=== PATIENT | male | born 1930 | race Caucasian/White ===

== ENCOUNTER 2016-07-06 12:01 | Emergency (ER) | payer MEDICARE ==
[2016-07-06 12:01] VITALS: BMI 22.7
[2016-07-06 12:18] VITALS: TEMP 97.5
--- NOTE | 2016-07-06 12:51 | EDPRACDOC ---
- Treatment Prior to ED Arrival Reported Medications/Treatment [facility] Treatment BLS - General Information Chief Complaint: Generalized Weakness Stated Complaint: STROKE Time Seen by Provider: 07/06/16 12:21 Information Source: Family Mode of Arrival:: Ambulance Home Medications: Home Medications Pravastatin [Pravachol] 40 mg PO 199908/04/13 Risperidone [Risperdal] 0.5 mg PO 199911/09/14 Rivastigmine Tartrate [Rivastigmine] 3 mg PO BID 11/09/14 Citalopram (anti-depressant) [Celexa] 20 [place] 79906/25/15 Finasteride [Proscar] 5 [place] PO 79906/25/15 Carbidopa/Levodopa [Carbidopa-Levodopa 25-100 Tab] 1 tab PO BID 05/22/16 Cyanocobalamin (Vitamin B-12) [Vitamin B-12 (cyanocobalamin)] 1,000 [place] 7[address]05/22/16 Oxybutynin [Ditropan] 5 mg PO 79905/22/16 Tamsulosin HCl [Flomax] 0.4 mg PO 0805/22/16 Acetaminophen Ex Str Tablet [TYLENOL EXTRA STRENGTH Tablet] 1,000 mg PO Q4H PRN 07/06/16 Aspirin [Aspirin EC] 81 [place] [address]07/06/16 Benazepril HCl [Lotensin] 20 mg PO 0800 07/06/16 Comp.stocking,Knee,Long,Medium [T.e.d. Anti-Embolism Stocking] 1 each QA Divalproex Sodium [Depakote Sprinkle] 250 mg PO TID 07/06/16 Furosemide [Lasix] 20 mg PO 0800 07/06/16 Guaifenesin [Robitussin] 10 ml PO Q6H PRN 07/06/16 Hydrocortisone/Aloe Vera [Hydrocortisone-Aloe 0.5% Cream] 28.4 gm TOP Q6H PRN Loperamide HCl [Imodium A-D] 2 mg PO DIR PRN 07/06/16 Magnesium Hydroxide [Milk of Magnesia] 30 ml PO DAILY PRN 07/06/16 Magnesium Hydroxide/Al Hydrox [Mylanta Liquid] 30 ml PO QID PRN 07/06/16 Neomy Sulf/Bacitrac Zn/Poly [Neosporin Antibiotic Ointment] 14.2 gm TOP Q12H Polyethylene Glycol 3350 [Miralax] 17 gm PO Q48H 07/06/16 Zaleplon [Sonata] 10 mg PO 199907/06/16 Allergies/Adverse Reactions: Allergies Allergy/AdvReac Type Severity Reaction Status Date / Time felodipine Allergy Unknown Verified 07/06/16 12:32 - History of Present Illness Exact Onset of Symptoms: Unknown Symptoms Started: Reports: At Rest HPI: PT PRESENTS WITH INCREASED LEANING TO THE LEFT. HE HAS BEEN LIKE THIS FOR SOME TIME ACCORDING TO HIS AT BEDSIDE. SHE REPORTS THAT HE WALKED WITH THERAPIST TODAY BUT WAS WEAKER THAN USUAL. ED Past Medical History - History Reviewed Yes Nurses notes reviewed and agree except as marked - Patient Medical History Neurological History: Reports: Cerebrovascular Accident (2013), Dementia Cardiac History: Reports: Hypertension, Hypercholesterolemia GI/ History: Reports: Renal Disease (RENAL INSUFFICIENY) Psychological History: Denies: Depression, Substance Use Disorder - Family Medical History Reports: Hypertension (Mom) - Social Medical History Smoking Status: Former smoker Social History: Denies: Substance Use Disorder Lives In: Senior Living Facility EDM Review of Systems - Review of Systems ROS Unobtainable: Yes Hx Limited due to age/level of understanding of patient - Physical Exam Constitutional: Alert, Confused Oriented to: Time, Person, Place Last recorded Vital Signs: Last Vital Signs Temp 97.5 F 07/06/16 12:11 Pulse 62 07/06/16 12:11 Resp 18 07/06/16 12:11 BP 189/95 H 07/06/16 12:11 Pulse Ox 93 07/06/16 12:11 Oxygen Pulse Oxygen Saturation 93 O2 Device Room Air Oxygen Flow Rate Fraction of Inspired Oxygen ( FIO2) - HEENT Head: negative: Deformity, Laceration Eye Exam: negative: Conjunctival Injection, Pale Conjunctiva Oropharynx: negative: Membranes Dry Nose: negative: Congestion, Discharge Neck: negative: Limited ROM - Respiratory/Cardiovascular Respiratory: Normal - CTA. negative: Accessory Muscle Use, Diminished, Tachypnea Cardiovascular: negative: Bradycardia, Tachycardia, Irregular - GI Auscultation: Normal Palpation: Normal Tenderness: Non tender - Musculoskeletal Extremities: Radial Pulse (PALPABLE) - Integumentary Skin: Warm, Dry. negative: Rash - Neurologic Memory Impaired: Short-term, Long-term Motor Function: Abnormal (PT IS GLOBALLY WEAK BILATERALLY. ARMS 3/5. LEGS ARE 3/5 BILATERAL.) Mood Description: Flat - Action Was an Antithrombotic given in the ED?: No Is patient a candidate for lytic therapy?: No Patient received TPA within 30 min of arrival?: No - Results 07/06/16 12:53 07/06/16 12:53 - EKG EKG #1 EKG Time: 12:08 -: Yes EKG interpreted by me Rate: bpm: 70 Rhythm: NSR, PVCs ST: Nonsp Decision Time to Discharge: 15:40 - Departure Yes I personally saw and evaluated the patient. Disposition: Home Condition: Stable Final Diagnosis: Muscle weakness Instructions: Weakness (General) Education/Counseling Given To: Family Member Education/Counseling Given Regarding: Diagnosis, Treatment Referrals: Bautista Salinas MD [Primary Care Provider] - One Week Prescriptions: Continue Pravastatin [Pravachol] 40 mg PO 2000 Risperidone [Risperdal] 0.5 mg PO 2000 Rivastigmine Tartrate [Rivastigmine] 3 mg PO BID Finasteride [Proscar] 5 mg PO 0800 Citalopram (anti-depressant) [Celexa] 20 mg PO 0800 Cyanocobalamin (Vitamin B-12) [Vitamin B-12 (cyanocobalamin)] 1,000 mcg SL 0800 Tamsulosin HCl [Flomax] 0.4 mg PO 0800 Oxybutynin [Ditropan] 5 mg PO 0800 Carbidopa/Levodopa [Carbidopa-Levodopa 25-100 Tab] 1 tab PO BID Magnesium Hydroxide [Milk of Magnesia] 30 ml PO DAILY PRN PRN Reason: Constipation Guaifenesin [Robitussin] 10 ml PO Q6H PRN PRN Reason: Cough Acetaminophen Ex Str Tablet [TYLENOL EXTRA STRENGTH Tablet] 1,000 mg PO Q4H PRN PRN Reason: RAMIREZ/MINOR PAIN Loperamide HCl [Imodium A-D] 2 mg PO DIR PRN PRN Reason: LOOSE STOOL Hydrocortisone/Aloe Vera [Hydrocortisone-Aloe 0.5% Cream] 28.4 gm TOP Q6H PRN PRN Reason: ITCH/RASH Zaleplon [Sonata] 10 mg PO 2000 Magnesium Hydroxide/Al Hydrox [Mylanta Liquid] 30 ml PO QID PRN PRN Reason: INDIGESTION Polyethylene Glycol 3350 [Miralax] 17 gm PO Q48H Furosemide [Lasix] 20 mg PO 0800 Divalproex Sodium [Depakote Sprinkle] 250 mg PO TID Comp.stocking,Knee,Long,Medium [T.e.d. Anti-Embolism Stocking] 1 each QAM Benazepril HCl [Lotensin] 20 mg PO 0800 Aspirin [Aspirin EC] 81 mg PO 0800 Neomy Sulf/Bacitrac Zn/Poly [Neosporin Antibiotic Ointment] 14.2 gm TOP Q12H
--- NOTE | 2016-07-06 12:57 | DIRPT ---
CLINICAL DATA: Drowsiness, history of CVA, leaning to the left for 1 month EXAM: CT HEAD WITHOUT CONTRAST TECHNIQUE: Contiguous axial images were obtained from the base of the skull through the vertex without intravenous contrast. COMPARISON: 11/22/2015 FINDINGS: No skull fracture is noted. Atherosclerotic calcifications of carotid siphon again noted. Calcified mass along the greater wing of right sphenoid is stable from prior exam consistent with calcified meningioma. Measures about 1.7 by 2 cm. Stable cerebral atrophy. Stable periventricular and patchy subcortical chronic white matter disease. No definite acute cortical infarction. No intraventricular hemorrhage. IMPRESSION: No acute intracranial abnormality. Stable atrophy and chronic white matter disease. No definite acute cortical infarction. Again noted calcified meningioma along the wing of right sphenoid bone. Electronically Signed By: Wild Mcmanus M.D. On: 07/06/2016 12:54
[2016-07-06 13:05] LABS: AUTOMATED EOSINOPHIL 1.8 % (0-5); AUTOMATED LYMPH 30.8 % (17-44); AUTOMATED MONOCYTE 13.9 % (3-10); AUTOMATED NEUTROPHIL 52.5 % (45-76); MPV 8.5 fL (7.4-10.4)
[2016-07-06 13:22] LABS: BLOOD UREA NITROGEN 15 MG/DL (9-20); CALC CORRECTED 10.2 MG/DL (8.4-10.2); CALCIUM 9.3 MG/DL (8.4-10.2); CALCULATED OSMOLALITY 271 MOs/Kg (270-290); CHLORIDE 106 mEq/L (98-107); GLUCOSE 86 MG/DL (70-99); SODIUM LEVEL 141 mEq/L (137-146); TOTAL PROTEIN 6.3 G/DL (6.3-8.2)
[2016-07-06 13:25] LABS: PARTIAL THROMB. TIME 23.1 SEC (22-35); PT-INR 1.1
--- NOTE | 2016-07-06 13:29 | DIRPT ---
CLINICAL DATA: Weakness, increased leaning to LEFT, increasing weakness EXAM: PORTABLE CHEST 1 VIEW COMPARISON: Portable exam 1254 hours compared to 05/24/2016 FINDINGS: Normal heart size, mediastinal contours and pulmonary vascularity. Slight rotation to the RIGHT. Atherosclerotic calcification aorta. LEFT basilar atelectasis. Remaining lungs grossly clear. Suspected small subpulmonic LEFT pleural effusion. No pneumothorax. Bones demineralized. IMPRESSION: Subsegmental atelectasis and probable small effusion at LEFT base. Electronically Signed By: Jorge Luis Johnson M.D. On: 07/06/2016 13:26
[2016-07-06 16:09] VITALS: BP 140/80; PULSE 63
== END 2016-07-06 16:09 | disposition home or self-care (01) ==
LOC: ED 12:01
DX: M62.81 Muscle weakness (generalized) (principal); F03.90 Unspecified dementia, unspecified severity, without behavioral disturbance, psychotic disturbance, mood disturbance, and anxiety
CPT/HCPCS: 36415; 70450; 71010; 80053; 84484; 85025; 85610; 85730; 93005; 99283

== ENCOUNTER 2016-07-07 18:48 | Emergency (ER) | payer MEDICARE ==
--- NOTE | 2016-07-07 19:03 | EDPRACDOC ---
- General Information Chief Complaint: Generalized Weakness Stated Complaint: CVA Time Seen by Provider: 07/07/16 18:55 Home Medications: Home Medications Pravastatin [Pravachol] 40 mg PO 199908/04/13 Risperidone [Risperdal] 0.5 mg PO 199911/09/14 Rivastigmine Tartrate [Rivastigmine] 3 mg PO BID 11/09/14 Citalopram (anti-depressant) [Celexa] 20 mg PO 79906/25/15 Finasteride [Proscar] 5 mg PO 79906/25/15 Carbidopa/Levodopa [Carbidopa-Levodopa 25-100 Tab] 1 tab PO BID 05/22/16 Cyanocobalamin (Vitamin B-12) [Vitamin B-12 (cyanocobalamin)] 1,000 [place] SL 79905/22/16 Oxybutynin [Ditropan] 5 mg PO 0805/22/16 Tamsulosin HCl [Flomax] 0.4 mg PO 0805/22/16 Acetaminophen Ex Str Tablet [TYLENOL EXTRA STRENGTH Tablet] 1,000 mg PO Q4H PRN 07/06/16 Aspirin [Aspirin EC] 81 mg PO 0807/06/16 Benazepril HCl [Lotensin] 20 mg PO 0800 07/06/16 Divalproex Sodium [Depakote Sprinkle] 250 mg PO TID 07/06/16 Furosemide [Lasix] 20 mg PO 0800 07/06/16 Guaifenesin [Robitussin] 10 ml PO Q6H PRN 07/06/16 Hydrocortisone/Aloe Vera [Hydrocortisone-Aloe 0.5% Cream] 28.4 gm TOP Q6H PRN Loperamide HCl [Imodium A-D] 2 mg PO DIR PRN 07/06/16 Magnesium Hydroxide [Milk of Magnesia] 30 ml PO DAILY PRN 07/06/16 Magnesium Hydroxide/Al Hydrox [Mylanta Liquid] 30 ml PO QID PRN 07/06/16 Neomy Sulf/Bacitrac Zn/Poly [Neosporin Antibiotic Ointment] 14.2 gm TOP Q12H PRN 07/06/16 Polyethylene Glycol 3350 [Miralax] 17 gm PO Q48H 07/06/16 Zaleplon [Sonata] 10 mg PO 199907/06/16 Aspirin 325 mg PO .ONCE PRN 07/07/16 Allergies/Adverse Reactions: Allergies Allergy/AdvReac Type Severity Reaction Status Date / Time felodipine Allergy Unknown Verified 07/06/16 12:32 - History of Present Illness Onset: DAYS Exact Onset of Symptoms: Unknown HPI: [facility] STATES THAT PT HAS BEEN "LEANING TO THE RIGHT" TODAY WITH INCREASED WEAKNESS, PT SEEN YESTERDAY FOR SIMILAR SYMPTOMS. PT HAS NO COMPLAINTS, STATES HE FEELS FINE, DENIES ANY PAIN, NO SOBR, NO N/V/D. Symptoms Started: Reports: Suddenly Symptoms Description: Worsening Weakness: Right: Arm, Leg Symptoms: Reports: Weak. Denies: Change of vision, Difficult speech, Faintness , Imbalance, Numbness, Near Syncope, On Med questionable toxic, Syncope, Tinnitus, Vertigo Symptom Severity: Reports: Unable to performs ADL's Relevant History of: Denies: Anemia, CVA, DM, Electrolyte disorder, GI Bleed, MD , TIA Associated signs and symptoms:: Denies: GI Bleed, Chest pain, Diarrhea, Fever, Headache, Nausea, Palpitations, Vomiting ED Past Medical History - History Reviewed Yes Nurses notes reviewed and agree except as marked - Patient Medical History Neurological History: Reports: Cerebrovascular Accident (2014), Dementia Cardiac History: Reports: Hypertension, Hypercholesterolemia GI/ History: Reports: Renal Disease (RENAL INSUFFICIENY) Psychological History: Denies: Depression, Substance Use Disorder - Family Medical History Reports: Hypertension (Mom) - Social Medical History Smoking Status: Former smoker Social History: Denies: Substance Use Disorder ETOH: None Substance Abuse: None Lives In: Assisted Living EDM Review of Systems - Review of Systems Constitutional: negative: Chills, Fever Eyes: negative: Blurred Vision, Double Vision Ears: negative: Drainage Throat: negative: Pain Nose: negative: Congestion, Discharge Respiratory: negative: Cough, Shortness of Breath, Wheezing Cardiovascular: negative: Chest Pain, Palpitations Gastrointestinal: negative: Diarrhea, Nausea, Pain, Vomiting Genitourinary: negative: Dysuria, Frequency Neurological: Weakness. negative: Dizziness, Headache, Numbness Musculoskeletal: No Symptoms Reported Integumentary: No Symptoms Reported - Physical Exam Constitutional: Alert (Awake), No apparent distress Oriented to: Time, Person, Place Last recorded Vital Signs: Oxygen Pulse Oxygen Saturation O2 Device Oxygen Flow Rate Fraction of Inspired Oxygen ( FIO2) - HEENT Head: Normal ( normocephalic) Eye Exam: Normal (PERRL, EOMI, Sclera white) Oropharynx: Normal (Pharynx:Moist without exudate,Gums-no swelling) Tympanic Membrane: Normal ENT EAC: Normal TMJ: Normal Nose: No Symptoms Reported (septum midline) Neck: Normal (FROM, trachea at midline) - Respiratory/Cardiovascular Respiratory: Normal - CTA (BBS clear to auscultation without adventitious sounds ) Cardiovascular: Normal (RRR without murmur, gallop or rub) - GI Auscultation: Normal (NABS) Palpation: Normal (Soft,No rebound or guarding, non distended) Tenderness: Non tender Mijares's Sign: Negative - Musculoskeletal Back: Normal (Non-Tender) Extremities: Normal (Normal tone, Pulses 2+ No cyanosis or edema, FROM) - Integumentary Skin: Normal, Warm, Dry Lymphatics: Normal (no adenopathy) - Neurologic Memory Impaired: Normal Motor Function: Normal (Normal tone, Pulses 2+ No cyanosis or edema, FROM) Cranial Nerve: Normal (CN II-X11 intact sensation, strength 5/5) Cerebellar: Normal Mood Description: Normal Perception: Normal NIH Stroke Scale Initial Evaluation Level of Consciousness: Alert LOC- Question: Answers Both Correctly LOC Commands: Both Task Correctly Best Gaze: Normal Visual: No Visual Loss Facial Palsy: Normal Movement Motor Arm LEFT: Drift Motor Arm RIGHT: Drift Motor Leg LEFT: Some Effort Against [place] (PT DOES NOT FOLLOW COMMAND TO PUSH/ PULL WITH FEET BUT CAN MOVE LOWER EXT) Motor Leg RIGHT: Unable to Assess (PT DOES NOT FOLLOW COMMAND TO PUSH/PULL WITH FEET BUT CAN MOVE LOWER EXT) Limb Ataxia: Absent Sensory: Normal Best Language: No Aphasia Dysarthria: Normal Extinction and Inattention: No Abnormality (Neglect) Score: 4out of42 - Differential Diagnosis CVA, Dehydration, Dysrhythmia, Electrolyte disorder, TIA - Re-evaluation Re-evaluation 1 Re-evaluation Time: 19:15 ( AT BEDSIDE, STATES HAS HAD WEAKNESS AND "NOT WALKING MUCH" FOR WEEKS, STATES "LEANING TO THE LEFT" FOR SEVERAL DAYS) Re-evaluation 2 Re-evaluation Time: 21:31 (RESTING QUIETLY) - Results 07/07/16 19:05 07/07/16 19:05 07/07/16 20:03 Laboratory Results - last 24 hr 07/07/16 07/07/16 07/07/16 19:05 19:05 19:05 WBC 5.5 RBC 3.99 L Hgb 13.0 L Hct 38.3 L MCV 96 H MCH 32.5 H MCHC 33.9 RDW 13.4 Plt Count 132 MPV 8.0 Neut % (Auto) 55.1 Lymph % (Auto) 26.1 Elliott % (Auto) 16.7 H Eos % (Auto) 1.4 Baso % (Auto) 0.7 Absolute Neuts (auto) 3.03 Absolute Lymphs (auto) 1.43 PT 11.5 H INR 1.1 APTT 25.1 Sodium 140 Potassium 4.3 Chloride 104 Carbon Dioxide 29 Anion Gap 11 BUN 22 H Creatinine 1.10 Estimated GFR (MDRD) > 60 Glucose 122 H Calculated Osmolality 273 Calcium 9.2 Corrected Calcium 10.2 Total Bilirubin 0.5 AST 21 ALT 18 L Alkaline Phosphatase 64 Troponin I 0.02 Total Protein 6.3 Albumin 3.0 L - EKG EKG #1 EKG Time: 19:00 -: Yes EKG interpreted by me Rate: bpm: 60 [place]: Normal Rhythm: NSR Block: None Hypertrophy: None ST: Nonsp Comparison: 07/06/16 (NO CHANGE) - Diagnostic Imaging CXR Image interpreted by: Radiologist PORTABLE CHEST 1 VIEW COMPARISON: 07/06/2016 FINDINGS: Heart is normal size. No confluent airspace opacities or effusions. No acute bony abnormality. IMPRESSION: No active disease. CT HEAD Image interpreted by: Radiologist CT HEAD WITHOUT CONTRAST TECHNIQUE: Contiguous axial images were obtained from the base of the skull through the vertex without intravenous contrast. COMPARISON: 07/06/2016 FINDINGS: Again noted is a calcified meningioma along the right sphenoid bone. There is atrophy and chronic small vessel disease changes. No acute intracranial abnormality. Specifically, no hemorrhage, hydrocephalus, mass lesion, acute infarction, or significant intracranial injury. No acute calvarial abnormality. Visualized paranasal sinuses and mastoids clear. Orbital soft tissues unremarkable. IMPRESSION: No acute intracranial abnormality. Atrophy, chronic microvascular disease. - Additional Information OLD CHART REVIEWED PT SEEN YESTERDAY FOR SAME SYMPTOMS CT SCAN NON ACUTE, LABS NORMAL, COMPLAINTS ARE LONG STANDING AND PROGRESSIVE (WEEKS), SUSPECT DUE TO KNOWN HX OF ADVANCED DEMENTIA. Decision Time to Discharge: 21:32 - Departure Disposition: Assisted Living Facility Condition: Stable Final Diagnosis: Generalized weakness Dementia Qualifiers: Dementia type: unspecified type Dementia behavioral disturbance: without behavioral disturbance Qualified Code(s): F03.90 - Unspecified dementia without behavioral disturbance Instructions: Weakness (General) Referrals: Bautista Salinas MD [Primary Care Provider] - One Week Prescriptions: No Action Pravastatin [Pravachol] 40 mg PO 2000 Risperidone [Risperdal] 0.5 mg PO 2000 Rivastigmine Tartrate [Rivastigmine] 3 mg PO BID Finasteride [Proscar] 5 mg PO 0800 Citalopram (anti-depressant) [Celexa] 20 mg PO 0800 Cyanocobalamin (Vitamin B-12) [Vitamin B-12 (cyanocobalamin)] 1,000 mcg SL 0800 Tamsulosin HCl [Flomax] 0.4 mg PO 0800 Oxybutynin [Ditropan] 5 mg PO 0800 Carbidopa/Levodopa [Carbidopa-Levodopa 25-100 Tab] 1 tab PO BID Magnesium Hydroxide [Milk of Magnesia] 30 ml PO DAILY PRN PRN Reason: Constipation Guaifenesin [Robitussin] 10 ml PO Q6H PRN PRN Reason: Cough Acetaminophen Ex Str Tablet [TYLENOL EXTRA STRENGTH Tablet] 1,000 mg PO Q4H PRN PRN Reason: RAMIREZ/MINOR PAIN Loperamide HCl [Imodium A-D] 2 mg PO DIR PRN PRN Reason: LOOSE STOOL Hydrocortisone/Aloe Vera [Hydrocortisone-Aloe 0.5% Cream] 28.4 gm TOP Q6H PRN PRN Reason: ITCH/RASH Zaleplon [Sonata] 10 mg PO 2000 Magnesium Hydroxide/Al Hydrox [Mylanta Liquid] 30 ml PO QID PRN PRN Reason: INDIGESTION Polyethylene Glycol 3350 [Miralax] 17 gm PO Q48H Furosemide [Lasix] 20 mg PO 0800 Divalproex Sodium [Depakote Sprinkle] 250 mg PO TID Benazepril HCl [Lotensin] 20 mg PO 0800 Aspirin [Aspirin EC] 81 mg PO 0800 Neomy Sulf/Bacitrac Zn/Poly [Neosporin Antibiotic Ointment] 14.2 gm TOP Q12H PRN PRN Reason: Skin Irritation Aspirin 325 mg PO .ONCE PRN PRN Reason: Chest Pain Or Discomfort Additional Instructions: CONTINUE YOUR USUAL MEDICATION BEFORE, RETURN TO THE ED FOR ANY WORSENING SYMPTOMS OR CONCERNS.
[2016-07-07] MEDS ORDERED: SODIUM CHLORIDE 0.9% 10 ML FLUSH FLUSH PRN (19:05)
[2016-07-07 19:31] LABS: AUTOMATED BASOPHIL 0.7 % (0-2); AUTOMATED EOSINOPHIL 1.4 % (0-5); AUTOMATED LYMPH 26.1 % (17-44); AUTOMATED MONOCYTE 16.7 % (3-10); AUTOMATED NEUTROPHIL 55.1 % (45-76)
[2016-07-07 19:33] VITALS: TEMP 98.4; BMI 21.9
--- NOTE | 2016-07-07 19:39 | DIRPT ---
CLINICAL DATA: Weakness. EXAM: PORTABLE CHEST 1 VIEW COMPARISON: 07/06/2016 FINDINGS: Heart is normal size. No confluent airspace opacities or effusions. No acute bony abnormality. IMPRESSION: No active disease. Electronically Signed By: Bakari Sharma M.D. On: 07/07/2016 19:36
[2016-07-07 19:45] LABS: BLOOD UREA NITROGEN 22 MG/DL (9-20); CALC CORRECTED 10.2 MG/DL (8.4-10.2); CALCIUM 9.2 MG/DL (8.4-10.2); CALCULATED OSMOLALITY 273 MOs/Kg (270-290); CHLORIDE 104 mEq/L (98-107); GLUCOSE 122 MG/DL (70-99); SODIUM LEVEL 140 mEq/L (137-146); TOTAL PROTEIN 6.3 G/DL (6.3-8.2)
[2016-07-07 19:48] LABS: PARTIAL THROMB. TIME 25.1 SEC (22-35); PT-INR 1.1
[2016-07-07 21:00] LABS: LEUKOCYTES/URINE NEG (NEGATIVE); NITRITE/URINE NEG (NEGATIVE); RBC/URINE TNTC (0-2); URINE OCCULT BLOOD 3+ (NEG/TRACE)
--- NOTE | 2016-07-07 21:11 | DIRPT ---
CLINICAL DATA: Weakness in right arm. Drooling, slurred speech. EXAM: CT HEAD WITHOUT CONTRAST TECHNIQUE: Contiguous axial images were obtained from the base of the skull through the vertex without intravenous contrast. COMPARISON: 07/06/2016 FINDINGS: Again noted is a calcified meningioma along the right sphenoid bone. There is atrophy and chronic small vessel disease changes. No acute intracranial abnormality. Specifically, no hemorrhage, hydrocephalus, mass lesion, acute infarction, or significant intracranial injury. No acute calvarial abnormality. Visualized paranasal sinuses and mastoids clear. Orbital soft tissues unremarkable. IMPRESSION: No acute intracranial abnormality. Atrophy, chronic microvascular disease. Electronically Signed By: Bakari Sharma M.D. On: 07/07/2016 21:09
[2016-07-07 21:54] VITALS: BP 158/63; PULSE 70
== END 2016-07-07 22:10 | disposition short-term general hospital (02) ==
LOC: ED 18:48
DX: R53.1 Weakness (principal); F03.90 Unspecified dementia, unspecified severity, without behavioral disturbance, psychotic disturbance, mood disturbance, and anxiety; I10 Essential (primary) hypertension; E78.00 Pure hypercholesterolemia, unspecified; Z86.73 Personal history of transient ischemic attack (TIA), and cerebral infarction without residual deficits; Z79.899 Other long term (current) drug therapy
CPT/HCPCS: 36415; 70450; 71010; 80053; 81001; 84484; 85025; 85610; 85730; 87077; 87086; 87186; 93005; 99285